=== PATIENT | male | born 1960 | race Hispanic/Latino ===

== ENCOUNTER 2016-12-26 09:58 | Emergency (ER) | payer MEDICAID ==
[2016-12-26 10:04] VITALS: BP 107/72; PULSE 86; TEMP 97; O2SAT 95; BMI 32.8
--- NOTE | 2016-12-26 10:26 | ED PDOC ---
HPI: General Adult Time Seen by Provider: 12/26/16 10:07 History Per: Patient Onset/Duration Of Symptoms: Days (13) Current Symptoms Are (Timing): Still Present Severity: None Pain Scale Rating Of: 0 Additional Complaint(s): s/p bilat inguinal hernia repair 13 days ago for suture removal. No pain, bleeding, fever or drainage Past Medical History Vital Signs: Last Vital Signs Temp 97 F L 12/26/16 10:02 Pulse 86 12/26/16 10:02 Resp BP 107/72 12/26/16 10:02 Pulse Ox 95 12/26/16 10:26 - Medical History PMH: No Chronic Diseases - Surgical History Surgical History: Hernia Repair - Family History Family History: States: Unknown Family Hx - Immunization History Hx Tetanus Toxoid Vaccination: No (not sure of last tetanus) - Home Medications Home Medications: Ambulatory Orders Medication Instructions Recorded Cephalexin [Keflex] 500 mg PO TID #21 capsule 12/13/15 oxyCODONE/Acetaminophen [Percocet 1 ea PO Q6H PRN #10 tab 12/13/15 5/325 mg Tab] - Allergies Allergies/Adverse Reactions: Allergies Allergy/AdvReac Type Severity Reaction Status Date / Time No Known Allergies Allergy Verified 12/27/15 15:23 Review of Systems Constitutional: Negative for: Fever Gastrointestinal: Negative for: Abdominal Pain Physical Exam - Physical Exam Appears: Positive for: Non-toxic, No Acute Distress Gastrointestinal/Abdominal: Positive for: Bowel Sounds, Soft, Other (Arturo in place no swelling, bleeding or drainage). Negative for: Tenderness - ECG O2 Sat by Pulse Oximetry: 95 Disposition - Clinical Impression Clinical Impression: Encounter for staple removal - Patient ED Disposition Is Patient to be Admitted: No - Disposition Referrals: Juan Alberto Sena MD [Staff Provider] - Disposition: Routine/Home Disposition Time: 10:28 Condition: FAIR Instructions: Stitches Removal (ED)
== END 2016-12-26 10:52 | disposition home or self-care (01) ==
LOC: H.ER 09:58
DX: Z48.02 Encounter for removal of sutures (principal)